=== PATIENT | female | born 1970 | race Caucasian/White ===

== ENCOUNTER → 2021-03-10 | Outpatient (CLI) | payer OTHER ==
[~2021-03-10] MED LIST: ASPIRIN CHEWABL81 MG PO
== END ==
LOC: US 10:00
DX: R10.11 Right upper quadrant pain (principal)
CPT/HCPCS: 76700

== ENCOUNTER → 2021-11-11 | Outpatient (CLI) | payer OTHER | LOC: NM 12:48 | DX: R10.11 Right upper quadrant pain (principal) | CPT/HCPCS: 78227; A9537 ==

== ENCOUNTER 2022-01-29 23:18 | Emergency (ER) | payer OTHER ==
[2022-01-29 23:54] LABS: HEMOGLOBIN 14.4 gm/dl (12.3-15.3); RED BLOOD COUNT 4.84 M/UL (4.00-5.10); WHITE BLOOD COUNT 9.1 K/UL (4.5-11.0)
[2022-01-30 00:18] LABS: BUN/CREATININE RATIO 18 (0-10)
== END 2022-01-30 02:55 | disposition left against medical advice (07) ==
LOC: ER1 23:18
DX: R07.9 Chest pain, unspecified (principal); Z88.2 Allergy status to sulfonamides; I10 Essential (primary) hypertension; F17.290 Nicotine dependence, other tobacco product, uncomplicated
CPT/HCPCS: 71045; 80053; 82550; 82553; 84484; 85025; 93005; 99281